=== PATIENT | male | born 1955 | race Caucasian/White ===

== ENCOUNTER 2017-01-13 16:26 | Inpatient (IN) | payer OTHER ==
[~2017-01-13] VITALS: Ht 165.1 cm; Wt 91.0 kg
[~2017-01-13 16:26] MED LIST: ASAEC PO; CLOP75TA14 PO; LISI20TA PO; METO50TA PO; ZOC20 PO
[2017-01-13 16:33] VITALS: BP 145/95; PULSE 65; RESP 20; O2SAT 96
[2017-01-13 17:36] LABS: BASOPHILS % (AUTO) 0.4 % (0-3); EOSINOPHILS % (AUTO) 1.2 % (0-5); MONOCYTES % (AUTO) 15.7 % (4-12); Mean Corpuscular Hemoglobin 31.4 pg (27.0-35.0); Mean Corpuscular Volume 90.6 fL (81-100); NEUTROPHILS % (AUTO) 49.2 % (40-74); Platelet Count 263 bil/L (150-400)
[2017-01-13 17:38] VITALS: BP 136/83; PULSE 60; RESP 17; O2SAT 97
--- NOTE | 2017-01-13 17:43 | DRSVH ---
PROCEDURE: X-RAY CHEST ONE VIEW, PORTABLE ([id number]) INDICATIONS: cp TECHNIQUE: One view of the chest was acquired. COMPARISON: [facility], , CHEST 1VW (PORTABLE), 01/09/2010, 2:48. FINDINGS: Surgical changes and devices: None. Lungs and pleura: No pleural effusions or pneumothorax. Lungs are clear. Mediastinum: Mediastinal contours appear normal. Heart size is normal. Bones and chest wall: No suspicious bony lesions. Overlying soft tissues appear unremarkable. Old healed left rib fractures. IMPRESSION: Negative chest. Dictated by: Gary Bright M.D. on 01/13/2017 at 17:33 Approved by: Gary Bright M.D. on 01/13/2017 at 17:34
[2017-01-13 17:56] LABS: TROPONIN T < 0.010 ug/L (0.0-0.011)
[2017-01-13 18:07] LABS: Magnesium 2.3 mg/dL (1.6-2.6)
--- NOTE | 2017-01-13 18:08 | ED.REPORT ---
HPI-Chest Pain 40 and Over Date of Service January 13, 2017 ED Provider: Dr. Badillo 61 y/o male with a hx of [place] (stent placement 7 years ago) and HTN presents to the ED complaining of intermittent chest pain, onset 4 days ago. The pt describes the pain as more of a heaviness with exertion. He states he noticed the pressure two weeks ago but thought it was anxiety. Associated sx include some SOB and dizziness. The pt denies hx of DVT, lower extremity edema, nausea and vomiting. Nursing Notes Stated Complaint: CHEST PAIN Chief Complaint: Chest Pain Nursing Notes Reviewed: Yes Allergies: Coded Allergies: No Known Allergies (Unverified , 01/13/17) Scheduled ([brandyn tincture]) 2-3 GTTS PO BID to TID General Time Seen by MD: 18:08 Chief Complaint Chest pain Hx Obtained From: Patient Arrived By: Walk-in Sudden in Onset?: No Onset Occurred: 4 days ago Context of Onset: Heavy exertion Symptom Duration: Intermittent Location: : Substernal Quality: Heaviness Severity: Current: No pain currently Severity: Maximum: No pain Recent Healthcare: No recent doctor visit Similar Sx Previous: No Past Medical History Past Medical History Myocardial infarction Reports: Hypertension Past Surgical History Stent placement Smoking History Unknown if Ever Smoker Ambulatory Status Independent Review of Systems Respiratory: Reports: Shortness of breath Cardiovascular: Reports: Chest pain (with exertion), Denies: Edema Neurologic: Reports: Dizziness Complete sys rev & neg: except as marked. Physical Exam Initial Vital Signs Vital Signs (First) Date Time Temp Pulse Resp B/P Pulse Ox O2 Delivery O2 Flow Rate FiO2 01/13/17 16:33 36.3 65 20 145/95 96 Room Air Initial VS: Reviewed Head / Eyes: Atraumatic, Normocephalic Neck: Supple, Non-tender, Full range of motion Extremities: Vascular intact, Neuro intact, No swelling, No tenderness Skin: Warm, Dry, No cyanosis Neurologic: Alert, Oriented, Nonfocal General/Constitutional: Awake, Alert, No acute distress, Cooperative Respiratory / Chest: Atraumatic, Breath sounds NL, Breath sounds = bilat, No respiratory distress, No rales, No rhonchi, No wheezing Cardiovascular: Heart rate NL, Regular rhythm, Heart sounds NL, No gallop, No murmurs, No rubs Abdomen: Atraumatic, Soft, Non-tender Interpretation & Diagnostics Lab Results Interpretation Result Diagram: 01/13/17 1720 01/13/17 1720 Test 01/13/17 17:20 White Blood Count 9.0th/mm3 (3.8-10.1) Red Blood Count 5.13mil/mm3 (4.40-5.80) Hemoglobin 16.1g/dL (13.8-17.2) Hematocrit 46.5% (41.0-50.0) Mean Corpuscular Volume 90.6fL (81-100) Mean Corpuscular Hemoglobin 31.4pg (27.0-35.0) Mean Corpuscular Hemoglobin Concent 34.6% (32.0-37.0) Red Cell Distribution Width 14.6% (12.3-15.4) Platelet Count 263bil/L (150-400) Neutrophils (%) (Auto) 49.2% (40-74) Lymphocytes (%) (Auto) 33.3% (14-46) Monocytes (%) (Auto) 15.7% (4-12) Eosinophils (%) (Auto) 1.2% (0-5) Basophils (%) (Auto) 0.4% (0-3) Sodium Level 135mEq/L (134-144) Potassium Level 4.1mEq/L (3.5-5.2) Chloride Level 98mEq/L (97-108) Carbon Dioxide Level 20mmol/L (18-29) Blood Urea Nitrogen 29mg/dL (8-27) Creatinine 1.29mg/dL (0.76-1.27) Estimat Glomerular Filtration Rate 60mL/min (>59) Glucose Level 100mg/dL (60-99) Calcium Level 9.7mg/dL (8.5-10.1) Magnesium Level 2.3mg/dL (1.6-2.6) Total Bilirubin 0.2mg/dL (0.0-1.2) Aspartate Amino Transf (AST/SGOT) 25U/L (0-50) Alanine Aminotransferase (ALT/SGPT) 27U/L (0-44) Alkaline Phosphatase 68U/L (25-160) Total Protein 7.4g/dL (6.4-8.4) Albumin 4.0g/dL (3.4-5.0) Triglycerides Level 185mg/dL (0-149) Cholesterol Level 289mg/dL (100-199) LDL Cholesterol, Calculated 209.000mg/dL (0-99) VLDL Cholesterol 37.000mg/dL HDL Cholesterol 43mg/dL (>39) Cholesterol/HDL Ratio 6.72 (0.0-4.4) Hold Matthews Top Tube Received (Received) Lab values outside NL range: no clinical significance. Lab Results Interpretation: Pulse Oximetry Interpretation Pulse Oximetry: Pulse Ox normal ECG Interpretation ECG Interpretation: Normal Sinus rhtyhm. Rate 58. Probable left atrial enlargement Old inferior infarct. No ST elevation. Time: 16:46 Interpreted by: ED physician Rhythm Strip Interpretation : Rhythm Strip Interpretation: Interpreted by me, Normal sinus rhythm Cardiac / Vascular Lab Interp Cardiac markers normal X-Ray Chest Interpretation Chest Xray Interpretation: IMPRESSION: Negative chest. Dictated by: Gary Bright M.D. on 01/13/2017 at 17:33 Approved by: Gary Bright M.D. on 01/13/2017 at 17:34 View: Portable, 1 view Interpretation / Wet Read by: Interpret - Radiologist Re-Eval/Medical Decision Med Decision/Clinical Course 61-year-old male with a history of coronary disease and stents presents with new onset exertional chest pain. Symptoms for at least a week. Progressively worsening to the point whereas almost no exercise intolerance. This is unstable angina. We will admit. No signs of STEMI on his EKG. First troponin is normal. Chest x-ray is normal. No history of pulmonary embolism. No pleuritic pain. No shortness of breath. Pulmonary emboli felt to be very unlikely. Aortic dissection felt to be very unlikely based on history, physical and diagnostics. Will admit for rule out protocol and stress testing. Time of Eval: 18:10 Re-Evaluation/Progress Note: Rechecked pt. Discussed lab results and plan to admit. Pt understands and agrees with the plan for admission. All questions addressed. Consultation : Referral / Consult Name: Tim Barajas MD Consulted With: Hospitalist Call Returned at: 19:12 Briquette Maker: Will see patient, Agrees with eval, Agrees with plan, Accepts admit Counseled Regarding: Diagnosis, Lab results, Need for admission Discharge & Departure Primary Impression: Unstable angina Disposition: ADMITTED TO HOSPITAL Discharge Condition All VS Reviewed: Yes Referrals: Marty Mohan MD (PCP) Scribe Attestation Portions of this note were transcribed by Patience Gee. I, , personally performed the history, physical exam and medical decision-making;I reviewed and confirmed the accuracy of the information in the transcribed note. Signed by Aida Pike. 01/13/17 1916 copies to: Marty Mohan MD, Todd P DO January 13, 2017 18:08 Patience Gee January 13, 2017 18:20
[2017-01-13] MEDS ORDERED: 0.9% Sodium Chloride 1,000 ML IV SCH (19:28)
[2017-01-13] MEDS ORDERED: Ondansetron 2 mg/mL 2 mL Inj IVPUSH PRN (19:30)
[2017-01-13] MEDS ORDERED: Senna-Docusate 8.6-50 mg Tablet PO PRN (19:30)
[2017-01-13] MEDS ORDERED: Alum-Mag Hydrox-Simeth 30 mL Suspension PO PRN (19:30)
[2017-01-13] MEDS ORDERED: Polyethylene Glycol (PEG) 17 Gm Powder PO PRN (19:30)
[2017-01-13] MEDS ORDERED: ASPI-973 PO (19:36)
[2017-01-13] MEDS ORDERED: LISI1TAB7 PO (19:36)
[2017-01-13] MEDS ORDERED: [UNRECOGNIZED DRUG - OTHER] PO (19:53)
[2017-01-13 20:10] VITALS: BP 127/71; PULSE 58; RESP 15; O2SAT 100
[2017-01-13 20:27] VITALS: BP 147/96; PULSE 56; RESP 19; O2SAT 97
[2017-01-13 20:32] VITALS: PULSE 79
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
[2017-01-13 21:11] LABS: Creatine Kinase 148 U/L (21-232)
[2017-01-14] MEDS: Sodium Chloride LOK Flush 10 mL Syringe IVFLUSH SCH ×4 (01:15→16:30)
[2017-01-14] MEDS: Heparin 5,000 Unit/mL Inj SUBQ SCH ×2 (01:15→09:04)
[2017-01-14 02:08] VITALS: BP 148/94; PULSE 54; RESP 18; O2SAT 96
--- NOTE | 2017-01-14 02:18 | NUR ---
ADMIT Pt admitted to 3020 from ED at 2030 hours on 01/13/17. Pt is alert and oriented x3, very pleasant and cooperative; he is smiling and appears to be in good spirits overall. Pt ambulates well without any assistive device or help from staff; no evident weakness or SOB. Pt oriented to room, call light, staff members, and hospital policies. Pt placed on telemetry monitoring by VIDEO CLERK. Pt denies any pain currently.
[2017-01-14 02:28] LABS: Creatine Kinase 120 U/L (21-232)
[2017-01-14 06:19] VITALS: BP 135/89; PULSE 54; RESP 17; O2SAT 97
[2017-01-14 06:32] LABS: BASOPHILS % (AUTO) 0.8 % (0-3); EOSINOPHILS % (AUTO) 1.5 % (0-5); MONOCYTES % (AUTO) 17.3 % (4-12); Mean Corpuscular Hemoglobin 31.7 pg (27.0-35.0); Mean Corpuscular Volume 91.6 fL (81-100); NEUTROPHILS % (AUTO) 52.6 % (40-74); Platelet Count 266 bil/L (150-400)
--- NOTE | 2017-01-14 06:32 | NUR ---
Uneventful Shift Pt slept through most of the night. Remained polite and cooperative through the shift, and appears to continue to be in good spirits this morning. No complaints of pain or SOB.
[2017-01-14 09:44] VITALS: BP 155/95; PULSE 52; RESP 18; O2SAT 98
[2017-01-14 10:49] VITALS: PULSE 56
--- NOTE | 2017-01-14 11:50 | NUR ---
Social Work: Screening Data: Pt is a 61 y/o male admitted for unstable angina. Pt's PCP is Dr Mohan, pt's insurance is [facility]. EMR reviewed. Pt discussed in rounds. MD states pt may be ready for d/c today. No d/c planning needs anticipated at this time. SENIOR BRANCH MANAGER will continue to follow if needs arise. Assessment: Pt who is independent at baseline. Plan: Pt will d/c home via POV when medically stable, possibly today per MD. No d/c planning needs anticipated at this time. SENIOR BRANCH MANAGER will continue to follow if needs arise. SHANIQUE Echevarria
--- NOTE | 2017-01-14 15:05 | DRSVH ---
PROCEDURE: 1 DAY TREADMILL STRESS TEST Rest and exercise myocardial perfusion SPECT with gated imaging and ejection fraction RADIOPHARMACEUTICAL: 10.5 mCi Tc-99m tetrafosmin IV at rest and 34.6 mCi Tc-99m tetrafosmin IV at pea k exercise. [id number] was performed. INDICATIONS: 61-year-old man with chest pain. Patient has coronary artery disease with history of co ronary stenting. Evaluate myocardial ischemia. TECHNIQUE: Radiopharmaceutical was injected at peak stress test, and also at rest. SPECT images wer e obtained. SPECT myocardial perfusion images were displayed in short axis, horizontal long axis, an d vertical long axis views. Gated images were reviewed using [email or web address] software. COMPARISON: None. CARDIAC STRESS: A standard Guillermo treadmill exercise tolerance test was performed by the patient under the supervision of an attending staff. The patient exercised for 4 minutes and 35 seconds; functional aerobic impai rment (TAMARA) is +50 %. Hemodynamic data: There is normal blood pressure and heart rate response to exercise stress. Patien t achieved 63% of maximum predicted heart rate at peak exercise. Symptoms: Patient had chest pain, 5/10, during exercise, resolved 2 minutes into recovery. EKG: Early transient ST elevation. FINDINGS: Raw data: There is good myocardial labeling by radiotracer. No significant motion artifacts. Left ventricle function: Gated images demonstrate normal left ventricle wall thickening. No segment al wall motion abnormality. No transient ischemic dilation. The left ventricle resting end-diastoli c volume is normal. Left ventricle stress ejection fraction is 63%; normal values are above 45%. Myocardial perfusion: There is a large, mild, reversible defect in the inferior wall of the left lisa tricle, which is largely resolved on prone imaging. IMPRESSION: 1. Probably normal myocardial perfusion images. There is a large, mild, reversible perfusion defect i n the inferior wall of the left ventricle, which is resolved on prone imaging, suggesting diaphragmat ic attenuation artifact. A small, very mild ischemia may be present. 2. Normal left ventricular volume and systolic function. 3. Severely limited exercise capacity. Submaximal exercise with the patient achieving 63% maximum pre dicted heart rate (target heart rate 85% or greater). The patient experienced chest pain during exer cise. EKG showed early transient ST elevation. PQRS ATTESTATIONS: Measure 322 - Is this imaging test primarily performed on a low-risk surgery patient for preoperative evaluation within 30 days preceding their low-risk non-cardiac surgery? Low-risk surgery is defined as cardiac or myocardial infarction less than 1%, including (but not limited to) endoscopic pr ocedures, superficial procedures, cataract surgery, and excisional breast surgery: Answer: No Measure 323 - Is this imaging test performed primarily for the monitoring of an asymptomatic patient who had percutaneous coronary intervention on the visit date or within 2 years of the visit date? An swer: No Measure 324 - Is this imaging test performed primarily for the initial detection and risk assessment on an asymptomatic, low coronary heart disease patient? Low CHD risk definition = clinicians should consider the maximum number of available patient factors used to estimate risk based on [place] (A TP III criteria), typically age, gender, diabetes, smoking status, and use of blood pressure medicati on, and integrate age appropriate estimates for missing elements, such as LDL or standard blood press ure. Answer: No Dictated by: Bhavin Bran M.D. on 01/14/2017 at 14:49 Approved by: Bhavin Bran M.D. on 01/14/2017 at 15:03
[2017-01-14 15:08] VITALS: BP 147/79; PULSE 53; RESP 18; O2SAT 96
[2017-01-14] MEDS ORDERED: Alum-Mag Hydrox-Simeth 30 mL Suspension PO PRN (16:05)
[2017-01-14] MEDS ORDERED: 0.9% Sodium Chloride 1,000 ML IV ONE (16:40)
[2017-01-14] MEDS ORDERED: Heparin 25K Unit/500mL 0.45 NS 25,000 UNIT in IV Premix 1 EACH IV SCH (16:40)
[2017-01-14] MEDS ORDERED: Heparin 5,000 Unit/mL Inj IVPUSH PRN (16:40)
--- NOTE | 2017-01-14 16:52 | DRSVH ---
[facility] [address] [place] [address] Echocardiogram Report Name: LAUAR CASTILLO WStudy Date: 01/14/2017 Hospital Exam Location: [facility] Gender: Male : 1955 Age: 61 yrs BP: 158/95 mmHg Reason For Study: Chest Pain Performed By: Abbie Michael Referring Physician: LORENE MARY Interpretation Summary The left ventricle is normal in size. The ejection fraction is estimated to be 60-65%. There has been no significant change in LV EF since the previous study.There is rosi basal inferior wall hypokinesis which appears to be new. The right ventricle is normal in size and function. There is discrete calcified nodular thickening of the non- coronary and the left coronary cusps (Old but more prominent on left coronary cusp as well in this study). There is no hemodynamically significant valvular aortic stenosis. There is aortic root sclerosis/calcification. Procedure: A two-dimensional transthoracic echocardiogram with color flow and Doppler was performed. The study quality was technically adequate. Comparison is made with the echocardiogram of 01/10/2010. Patient was in sinus rhythm with a heart rate varying from 50-55 bpm. Left Ventricle: The left ventricle is normal in size. Proximal septal thickening is noted. There is no echo evidence for significant left ventricular outflow tract obstruction. There is no thrombus. The ejection fraction is estimated to be 60-65%. There has been no significant change since the previous study. There is rosi basal inferior wall hypokinesis which appears to be new. Spectral Doppler of the mitral valve is reversed, with an E/A wave ratio < 1.0. Right Ventricle: The right ventricle is normal in size and function. Atria: The left atrium is mildly dilated. The left atrium has remained unchanged in size since the prior echo exam. Right atrial size is normal. The interatrial septum is intact with no evidence for an atrial septal defect. Mitral Valve: There is mild mitral annular calcification. The mitral valve leaflets are slightly calcified. There is trace mitral regurgitation. Aortic Valve: The aortic valve is trileaflet. There is moderate aortic valve sclerosis. There is discrete nodular thickening of the non- coronary cusp. Leaflet mobility is minimally reduced. There is no hemodynamically significant valvular aortic stenosis. There is no aortic regurgitation. Tricuspid Valve: The tricuspid valve is normal in structure and function. There is trace tricuspid regurgitation. The right ventricular systolic pressure is estimated at 28 mmHg assuming a right atrial pressure of 3 mm Hg. Compared to the prior echo exam, there has been a decrease in TR severity. Pulmonic Valve: The pulmonic valve leaflets are thin and pliable; valve motion is normal. There is mild pulmonic regurgitation. Great Vessels: The aortic root is normal size. There is aortic root sclerosis/calcification. The ascending aorta is normal in size. The IVC is of normal diameter and collapses greater than 50% with a sniff. This suggests a low right atrial pressure of 3 mm Hg. Pericardium/ Pleura There is no pericardial effusion. There is no pleural effusion. MMode/2D Measurements & Calculations LVIDd: 4.7 cm LA A2 area: 15.6 cm RA long axis LVOT diam: 2.3 cm LVIDs: 3.4 cm asc Aorta Diam FS: 27.4 % LA A4 area: 15.9 cm RA area: 13.3 cm EPSS: 1.0 cm LA length (vol) RA vol: 35.9 ml IVSd: 1.2 cm LVPWd LA vol: 44.2 ml : 0.8cm TAPSE: 2.6 cm Doppler Measurements & Calculations Ao V2 max MV E max anjum MV E/A: 0.76 TR max anjum : 113.5 cm/sec : 79.7 cm/sec Med Peak E' Anjum : 252.0 cm/sec Ao max P.1 mmHgMV A max anjum TR max PG Ao mean PG : 105.4 cm/sec E/E' med: 13.5 : 25.4 mmHg Lat Peak E' Anjum PA V2 max LVOT Max Anjum : 74.2 cm/sec : 99.5 cm/sec E/E' lat: 10.3 PA mean PG CATHLEEN(I,D): 3.5 cm E/e' average: 11.9 : 1.2 mmHg sev ratio: 0.87 MV dec time Ao V2 mean LV V1 max PG PA V2 mean : 0.23 sec : 79.1 cm/sec : 51.7 cm/sec Ao V2 VTI: 23.9 cm LV V1 VTI: 20.8 cm PA pr(Accel) : 25.1 mmHg CATHLEEN(V,D): 3.5 cm2 [place] Physician:PACO
--- NOTE | 2017-01-14 17:39 | PCM.PNMED ---
Subjective Date of Service January 14, 2017 Subjective Denies any new issues/complaints. no CP right now Exam Vital Signs Vital Sign - Last Date Time Temp Pulse Resp B/P Pulse Ox O2 Delivery O2 Flow Rate FiO2 01/14/17 15:08 37.1 53 18 147/79 96 Room Air Intake and Output 01/13/17 01/13/17 01/14/17 Cumulative From/Thru 15:00 23:00 07:00 01/13/17 16:33 - 01/14/17 06:19 Intake Total 200 ml 200 ml Output Total 420 ml 420 ml Balance -220 ml -220 ml Intake Oral 200 ml 200 ml Output Urine Total 420 ml 420 ml General: Alert, Oriented X3, Cooperative, No Acute Distress Head: Normal Eyes: Scleral Anicteric Nose: Mucous Membr Moist/[place] Mouth: Mucous Membr Moist/[place] Neck: Supple Chest & Lungs: Chest Wall Normal, Clear to auscultation & percussion Cardiovascular: Regular Rate/Rhythm Pulses: NL carotid, radial, femoral, DP, PT Abdomen: Non-tender, Non-distended, Normoactive bowel tones Extremities: No cyanosis/clubbing/edma bilat Neurological: Grossly Neurologically Intact, Normal Speech IVs and Medications Medications Reviewed: Medications were reviewed in detail Lab and Diagnostics Result Diagram: 01/14/17 0601/14/17 0620 X-Rays, CTs and MRIs Chest Xray Interpretation: IMPRESSION: Negative chest. Dictated by: Gary Bright M.D. on 01/13/2017 at 17:33 Approved by: Gary Bright M.D. on 01/13/2017 at 17:34 View: Portable, 1 view Interpretation / Wet Read by: Interpret - Radiologist 12-lead ECG ECG 4:46pm NSR rate 58, with no acute ischemic changes Read by ED physician Assessment & Plan 61 y/o male with a hx of ID s/p stent in 2009 and HTN presents to the ED complaining of intermittent chest pain, onset 4 days ago. # Acute Unstable angina, present on admission. Active. - Stress test on 01/[address] elevation and CP during exercise - Cardiology consulted. Will followup with recommendations: - Aspirin 325 mg - Increase Lipitor to 80 daily - Start heparin drip - Tentative plan for cardiac cath in am or sooner if has any further chest pain # Known history of CAD with stent - plan as noted above # Hypertension, chronic. - Continue lisinopril and metoprolol - Further medication management per cardiology recommendations # Hyperlipidemia, chronic. - Patient stopped taking simvastatin due to myalgias many years ago - Lipitor as noted above Dispo: 2-3 days pending further cardiac workup noted above GI Prophylaxis: Proton Pump Inhibitor VTE Prophylaxis: Sub-Q Heparin (Unfractionated) Resuscitation Status: CPR: Attempt Resuscitation Phong Gay January 14, 2017 17:39
--- NOTE | 2017-01-14 18:05 | NUR ---
Stress test: Patient had cardiac stress test today. He cam back from the test and had an echo and a cardiology consult. Per MD orders patients PTT /heparin lab was drawn and patient was started on a Cardiac Heparin Drip as per protocol. The settings were checked by second nurse. Patient is scheduled for a cardiac catheterization tomorrow am at 0900. Patient will be NPO after midnight for the test. His current tele reading is 54 SB . PT has had no c/o chest pain today. Per Printing Agent patients Metoprolol and Lisinopril were held.
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
[2017-01-14 22:12] VITALS: BP 147/90; PULSE 47; RESP 17; O2SAT 98
[2017-01-15] VITALS (23 sets, daily range): BP systolic 120–159; BP diastolic 78–109; PULSE 43–72; RESP 12–18; O2SAT 95–99
[2017-01-15] MEDS: Sodium Chloride LOK Flush 10 mL Syringe IVFLUSH SCH ×6 (00:30→16:15)
[2017-01-15 05:13] LABS: BASOPHILS % (AUTO) 0.5 % (0-3); EOSINOPHILS % (AUTO) 2.4 % (0-5); MONOCYTES % (AUTO) 12.6 % (4-12); Mean Corpuscular Hemoglobin 31.6 pg (27.0-35.0); Mean Corpuscular Volume 88.7 fL (81-100); NEUTROPHILS % (AUTO) 48.2 % (40-74); Platelet Count 269 bil/L (150-400)
[2017-01-15 05:20] LABS: INR 1.06 ratio
--- NOTE | 2017-01-15 05:53 | NUR ---
Cardiac Pt is chest pain free throughout the NOC. VSS. Heparin infusing and managed per Heparin Cardiac protocol. Pt NPO status since mid-NOC anticipating heart cath. NO overt complication noted.
[2017-01-15] MEDS ORDERED: 0.9% Sodium Chloride 1,000 ML IV ONE (06:00)
[2017-01-15] MEDS ORDERED: Heparin 1,000 Unit/mL 10 mL Inj ONE ×3 (08:25→09:50)
[2017-01-15] MEDS ORDERED: Nitroglycerin 50,000 mcg/250 mL D5W Premix IV ONE (08:25)
[2017-01-15] MEDS ORDERED: Heparin 1,000 Units/500 mL NS Premix IV ONE (08:25)
[2017-01-15] MEDS ORDERED: Heparin 10,000 Unit/1,000 mL NS Premix IV ONE ×3 (08:26→11:11)
--- NOTE | 2017-01-15 08:50 | NUR ---
Pre-op for Funds Development Director Heparin gtt infusing with no change to rate this AM. Consent confirmed and in chart. IV x2 and SL per cal lab personnel. Chlorhexidine body wipes. Pedal pulses marked with doppler. Escorted off floor by assistant laboratory director personnel via bed with at bedside. Report called to LYNDON.
[2017-01-15] MEDS ORDERED: fentaNYL-PF 50 mCg/mL 2 mL Inj ONE ×2 (08:59→10:22)
[2017-01-15] MEDS ORDERED: Phenylephrine/NS-PF 100 mCg/mL 5 mL Syringe IVPUSH ONE (09:33)
[2017-01-15] MEDS ORDERED: Atropine 1 mg/10 mL (Code) Syringe ONE (09:33)
--- NOTE | 2017-01-15 11:50 | DI95 ---
[address] [address] INTERVENTIONAL CARDIAC CATHETERIZATION PATIENT: LAURA CASTILLO : 1955 MR#: [id number] ADMIT: 01/13/2017 JOB ID: [id number] DATE: 01/15/2017 PROCEDURE: Percutaneous intervention on the right coronary artery. INDICATION: Acute coronary syndrome. ST elevation on the treadmill. PROCEDURAL DETAILS: The reader is referred to the procedure log as are the coders. This was a very long and a very complex procedure. Dr. Orozco had performed the diagnostic angiogram and he tried doing an intervention and was unsuccessful. I was asked to do this intervention on the right coronary artery. The right coronary artery has an upward takeoff and it has two bends, one of them is 90 degrees and the other one is about 120 degrees in its proximal and mid segment. Distal RCA before the crux had a tight 90% lesion. INTERVENTIONAL REPORT: The sheath was up sized to 7-Mongolian and an AL1 guide was used to cannulate this vessel. We initially crossed the lesion and the tortuosity with a Choice PT wire. Following that, we used a FineCross catheter to exchange this wire out for a balanced heavy weight wire. A guide liner was then placed and balloon inflations were done distally with a 2.0 and then with a 3.0 balloon. Following that, a 3.0 x 15 mm Xience drug-coated stent was delivered at 18 atmospheres with excellent angiographic results. In summary, successful complex intervention of the right coronary artery. The patient is advised to stay on dual antiplatelet therapy for at least six months post procedure.
[2017-01-15] MEDS ORDERED: 0.9% Sodium Chloride 250 ML BOLUS IV PRN (12:30)
[2017-01-15] MEDS ORDERED: Ondansetron 2 mg/mL 2 mL Inj IVPUSH PRN (12:30)
[2017-01-15] MEDS ORDERED: 0.9% Sodium Chloride 1,000 ML IV SCH (13:00)
--- NOTE | 2017-01-15 13:42 | NUR ---
Transfer Transfer to room 2028 planned for after recovery in [facility]. Contacted receiving RN. Belongings packed and transferred via ASSIGNMENT CLERK. Medications from drawer transferred in tube.
--- NOTE | 2017-01-15 14:02 | NUR ---
Arrival to room 2028 Patient arrived to [facility]. Calm and cooperative. No reported pain. Right groin site nontender and soft, no s/s of bruising or active bleeding. Pulses intact. SB per telemetry. Pressure stable. Sp02 >92% on room air. NS infusing at 100cc/hr. Patient oriented to room and call light. Plan of care and activity restrictions reviewed at bedside. Will continue to monitor.
--- NOTE | 2017-01-15 14:38 | CS94 ---
[address] [address] DIAGNOSTIC CARDIAC CATHETERIZATION PATIENT: LAURA CASTILLO : 1955 MR#: [id number] ADMIT: 01/13/2017 JOB ID: [id number] PROCEDURE NOTE -- CARDIAC CATHETERIZATION LABORATORY: SERVICE DATE: December FARM MANAGEMENT SUPERVISOR: Delon Orozco MD PROCEDURES: 1. Coronary angiogram -- urgent. 2. Left heart catheterization (LHC) -- pressure measurement. CLINICAL DETAILS: This 61-year-old man presents to the Cardiac Catheterization Laboratory for cardiac catheterization after he was admitted to the hospital 36 hours ago because of the 3-week onset of exertional and occasional mild episodes of angina consisting of neck tightness. ECG is not outside normal limits; and serial troponins were not elevated. Echocardiogram shows intact left ventricular global systolic function with ejection fraction 60%; but probable inferior hypokinesis on a limited study. The clinical impression is unstable angina pectoris. On a treadmill myocardial perfusion scan, he developed chest discomfort and inferior ST elevation at 85 bpm. The perfusion images showed a large inferior defect that reperfused during redistribution phase; however, on prone positioning there was no stress defect; but he was felt to have a very high likelihood of RCA lesion. He has known coronary disease after presenting with ACS in 2009 leading to emergent PCI of culprit OM 2 (Xience 3.0 x 28 mm). At that time, he also had intermediate disease in the RCA and LAD; and a severe ostial diagonal lesion. CAD risk factors include hypertension; severe untreated hyperlipidemia (cholesterol 289; and LDL 229). He has not seen a doctor since 2010. PROCEDURAL DETAILS: I met him prior to the procedure to discuss the findings, impressions and management considerations including the recommendation to proceed to urgent coronary angiogram and with a high likelihood of finding progressive coronary disease requiring intervention or even consideration of bypass surgery. We discussed the procedure including risks and complications. After discussion and questions, he signed informed consent to proceed. He was brought to the Catheterization Laboratory n.p.o. where he was prepped sterilely and draped. He had been treated with ASA and heparin IV infusion, and statin; and no beta dedrick because of bradycardia. CORONARY ANGIOGRAM: Arterial access was obtained without difficulty in the right common femoral artery using fluoroscopic localization over the femoral head and modified Seldinger technique to insert a 10 cm 6-[place] side-arm sheath. Catheters were advanced and exchanged over a long 0.035 inch J tipped guidewire. First, the left coronary artery was engaged with a 6-[place] JL-4 catheter. Then, the right coronary artery was engaged with a 6-[place] JR-4 catheter. LHC: The catheter incidentally entered the left ventricle where LVED and pullback were recorded. Procedure without difficulty. Patient tolerated the procedure well. No complications. A side-arm sheath angiogram shows adequate access in the right femoral artery for a closure device. The diagnostic images were reviewed and decision made to undertake urgent PCI of the culprit subtotal distal RCA lesion. See PCI report dictated separately. At the end of the procedure, I discussed the findings, impressions and ongoing management considerations with the patient, with his ; with Cardiology; and with the hospitalist team. FINDINGS: 1. LMCA: Intact. The left main coronary artery has no angiographic obstruction. 2. LAD: Proximal LAD. There is a hazy tubular intermediate stenosis (40% to 50%) at the takeoff of the first diagonal. Diagonal one: Focal 90% ostial lesion noted with MERYL-3 flow. The diagonal was moderate size (2.0-2.25 mm). Mid LAD: Note: Tubular intermediate 50% to 60% lesion in the distal part of the mid LAD segment. The LAD terminates as a transapical vessel. 3. LCX: OM-2: The prior stent from 2009 is widely patent and fully intact in the large dominant OM branch. OM-1: The OM-1 is a small vessel with 80% ostial and proximal narrowing with MERYL-3 flow. 4. RCA: Dominant. 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 Distal RCA: The apparent clinical culprit lesion is a focal subtotal 95% lesion with MERYL-3 flow. This lesion was present in 2009 but now much more severe. PDA: Moderate-sized vessel with severe focal proximal 95% lesion with MERYL-3 flow. RPLB: Moderate-size vessel with moderate diffuse atherosclerosis. CONCLUSIONS: 1. Coronary artery disease (CAD)-- three-vessel disease including culprit focal subtotal distal RCA (right coronary artery) lesion prior to the crux; as well as severe focal ostial lesion of moderate-sized diagonal-1; and intermediate lesions of proximal and mid LAD (left anterior descending); and patent prior stent in OM-1 (obtuse marginal 1). 2. ACS (acute coronary syndrome) -- UAP (unstable angina pectoris). RECOMMENDATIONS: Diagnostic images were reviewed and the patient remained in the Catheterization Laboratory to proceed with urgent PCI of distal RCA culprit lesion.
--- NOTE | 2017-01-15 15:15 | NUR ---
Bleeding at groin site Transparent/gauze dressing to right groin saturated with blood. Dressing removed, slow ooze noted at site. No hematoma or bruising noted. Manual pressure held for 10 minutes, and fem-stop applied. Pulses remain intact. Vital signs stable. Denies pain. Will continue to monitor.
--- NOTE | 2017-01-15 16:07 | PCM.PNMED ---
Subjective Date of Service January 15, 2017 Subjective Denies any new issues/complaints. no CP right now Exam Vital Signs Vital Sign - Last Date Time Temp Pulse Resp B/P Pulse Ox O2 Delivery O2 Flow Rate FiO2 01/15/17 15:41 49 18 137/90 01/15/17 15:39 96 Room Air 01/15/17 14:03 36.6 Intake and Output 01/14/17 01/14/17 01/15/17 Cumulative From/Thru 15:00 23:00 07:00 01/13/17 16:33 - 01/15/17 06:00 Intake Total 803 ml 1000 ml 1926 ml 3929 ml Output Total 300 ml 1100 ml 1820 ml Balance 803 ml 700 ml 826 ml 2109 ml Intake Oral 400 ml 400 ml 1000 ml IV Total 803 ml 600 ml 1526 ml 2929 ml Output Urine Total 300 ml 1100 ml 1820 ml Exam General: Alert, Cooperative, No Acute Distress Head: Normal Eyes: Scleral Anicteric Nose: Mucous Membr Moist/[place] Mouth: Mucous Membr Moist/[place] Neck: Supple Chest & Lungs: Chest Wall Normal, Clear to auscultation bilat Cardiovascular: Regular Rate/Rhythm Pulses: NL carotid, radial, femoral, DP, PT Abdomen: Non-tender, Non-distended, Normoactive bowel tones Extremities: No cyanosis/clubbing/edema bilat Neurological: Grossly Neurologically Intact, Normal Speech IVs and Medications Medications Reviewed: Medications were reviewed in detail Lab and Diagnostics Result Diagram: 01/15/17 0435 01/15/17 0435 X-Rays, CTs and MRIs Chest Xray Interpretation: IMPRESSION: Negative chest. Dictated by: Gary Bright M.D. on 01/13/2017 at 17:33 Approved by: Gary Bright M.D. on 01/13/2017 at 17:34 View: Portable, 1 view Interpretation / Wet Read by: Interpret - Radiologist 12-lead ECG ECG 4:46pm NSR rate 58, with no acute ischemic changes Read by ED physician Assessment & Plan 61 y/o male with a hx of [place] s/p stent in 2009 and HTN presents to the ED complaining of intermittent chest pain, onset 4 days ago. # Acute Unstable angina, present on admission. - Stress test on 01/[address] elevation and CP during exercise - Appreciate Cardiology consult. Will followup with recommendations: - Post cardiac cath on 01/15 showing: "Coronary artery disease (CAD)-- three- vessel disease including culprit focal subtotal distal RCA (right coronary artery) lesion prior to the crux; as well as severe focal ostial lesion of moderate-sized diagonal-1; and intermediate lesions of proximal and mid LAD ( left anterior descending); and patent prior stent in OM-1 (obtuse marginal 1)." - Post "successful complex intervention of the right coronary artery." - Continue dual antiplatelet therapy for at least six months post procedure. # Known history of CAD with stent - plan as noted above # Hypertension, chronic. - Further medication management per cardiology recommendations # Hyperlipidemia, chronic. - Patient stopped taking simvastatin due to myalgias many years ago - Continue Lipitor for now Dispo: 1-2 days GI Prophylaxis: Proton Pump Inhibitor VTE Prophylaxis: Sub-Q Heparin (Unfractionated) Resuscitation Status: CPR: Attempt Resuscitation Phong Gay January 15, 2017 16:06
[2017-01-16] MEDS: Sodium Chloride LOK Flush 10 mL Syringe IVFLUSH SCH ×4 (00:30→08:25)
[2017-01-16 00:31] VITALS: BP 145/91; PULSE 52; RESP 18; O2SAT 98
[2017-01-16 03:46] VITALS: BP 143/92; PULSE 56; RESP 18; O2SAT 97
--- NOTE | 2017-01-16 04:20 | NUR ---
activity pressure dressing of kerlix placed on right groin perclose to prevent additional serous sanguinous drainage patient ambulated to restroom without difficulty. no change to perclose. u
[2017-01-16 04:47] LABS: Mean Corpuscular Hemoglobin 31.5 pg (27.0-35.0); Mean Corpuscular Volume 89.9 fL (81-100)
[2017-01-16 05:19] VITALS: PULSE 65
[2017-01-16 08:00] VITALS: PULSE 55
[2017-01-16 08:16] VITALS: BP 144/95; PULSE 53; RESP 16; O2SAT 96
--- NOTE | 2017-01-16 10:58 | NUR ---
Social Work: Discharge D: Pt discussed in am rounds. Pt is medically stable for discharge home. MD anticipates no social work or discharge needs. TRIMMING CUTTER MACHINE met with pt at bedside to confirm dcp. Pt lives at home with his . Pt has been ambulating I during admission and denies any home needs. Family will be transporting the patient. EMR reviewed and no sw needs identified. A: Pt who is I at baseline. P: Pt to discharge home with no sw needs; SHANIQUE Lucio
--- NOTE | 2017-01-16 11:33 | PROG NOTE ---
[address] [address] PROGRESS NOTE PATIENT: LAURA CASTILLO : 1955 MR#: [id number] ADMIT: 01/13/2017 JOB ID: [id number] DATE: 01/16/2017 CARDIOLOGY CONSULTATION PROGRESS NOTE -- FOLLOWUP INPATIENT PHYSICAL: DATE OF EVALUATION: Monday, January 16, 2017. CONSULTING PHYSICIAN: Cardiology -- Delon Orozco MD. PROBLEMS: 1. ACS (UAP with ST-elevation on treadmill exercise test). 2. Coronary artery disease (CAD): a. Urgent PCI of culprit subtotal focal distal RCA lesion (Xience 3.0 x 15 mm NAIMA). b. Three-vessel CAD -- including intermediate LAD lesions; severe ostial diagonal lesion (chronic and unchanged); current distal RCA culprit revascularized; and OM lesion previously revascularized (stent from 2009, currently intact). c. Risk factors: Hypertension and severe hyperlipidemia (LDL 220), not treated for several years recently. HOSPITAL COURSE AND INTERIM PROGRESS: HOSPITAL DAY FOUR. I saw this 61-year-old man along with his on the PCU unit today on Monday, January 16, 2017, on cardiology rounds. I had a lengthy discussion with them regarding his findings and progress and ongoing management considerations. I also discussed with the primary hospitalist service. In summary, he presented with chest discomfort, negative troponin and near normal ECG -- i.e., unstable angina. He had ST elevation and chest discomfort at 85 bpm on treadmill. Catheterization was accomplished yesterday which showed a new culprit subtotal distal RCA lesion that was treated with a Xience 3.0 mm NAIMA. 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 Post PCI, he has done well with no symptom, no arrhythmia and no difficulty with his right groin access site. He has been ambulating in the room but not yet out in the hallway. Bradycardia has been noted on telemetry precluding metoprolol. EXAMINATION: Vital signs stable. He had vigorous urine output after contrast. Heart and lungs: Intact. Extremities: Note intact RFA access site with only a modest ecchymosis. No hematoma. No pulsatile mass or systolic bruit, and good perfusion with good distal pulses in the right foot. ELECTROCARDIOGRAM: Not clearly outside normal limits. LABORATORY: Creatinine remains intact, and other labs unremarkable. ASSESSMENT: Had several extensive discussions with him and his including yesterday after the catheterization, today with him; and later again with his when she arrived. We discussed activity after his procedure including not to lift more than 10 pounds for a week. Then, also to resume normal activities as tolerated according to an activity prescription for moderate, progressive, stepwise, symptom-limited activity. He is vigorously active and planning to take his boat back to [facility], where he will live. I reminded him to not overdo it initially. MEDICATIONS: We discussed his medications again including the critical importance of mandatory dual antiplatelet therapy. We had started prasugrel acutely in the catheterization laboratory; but discussed plan to discharge him on Plavix 75 mg p.o. daily for a year as tolerated. They understand the critical importance of dual antiplatelet therapy; and not to stop for any reason without immediate cardiology consultation. FOLLOWUP: We discussed to reestablish care with a PCP to be seen in several days to a week. I recommended the importance of cardiology followup with Dr. Ceron who knows him well in the Cardiology Clinic. Finally, we discussed the importance and value of a cardiac rehab program if he can do it; although he may be at too far a distance on [facility]. RECOMMENDATIONS: 1. Continue re-ambulation including in the hallways out of the room. 2. Discharge today per primary hospitalist service. He is stable for discharge from a cardiology point of view. 3. Followup as per above.
[2017-01-16] MEDS ORDERED: ASPI81TA3 PO (11:43)
[2017-01-16] MEDS ORDERED: ATOR40TA69 PO (11:43)
[2017-01-16] MEDS ORDERED: CLOP75TA3 PO (11:43)
--- NOTE | 2017-01-16 11:47 | PCM.DIMED ---
Discharge Instructions Date of Service January 16, 2017 Dates of Hospitalization January 13, 2017 at 19:45 Discharge Diagnosis Discharge Diagnosis Acute coronary syndrome; status post percutaneous intervention Medication Instructions Additional med instructions New prescriptions have been transmitted to your pharmacy. Diet Discharge Diet: Heart Healthy Activity Discharge Activity: Limited until seen by PCP Call your provider Call your provider for: Chest pain Patient Instructions Patient Instructions Normal activity, but avoid high intensity exercise until seen by your physician. Follow-up Provider: Mario Ceron MD Follow-up with PCP in: 2 weeks (call S cardiology clinic soon for posthospitalization follow-up appointment with Dr. Ceron) Provider: Marty Mohan MD Follow-up in: 1 week (call for posthospitalization follow-up appointment with primary care provider) Ky Richardson MD January 16, 2017 11:47
[2017-01-16] MEDS ORDERED: LISI1TAB9 PO (11:50)
--- NOTE | 2017-01-16 11:55 | PCM.DC.MED ---
Discharge Summary Date of Service January 16, 2017 Dates of Hospitalization Date of Hospital Admission January 13, 2017 at 19:45 Date of Discharge: January 16, 2017 Providers: Admitting Physician: Tim Barajas MD Primary Care Physician: Marty Mohan MD Attending Physician: Tim Barajas MD Diagnosis at Time of Discharge Diagnosis at Time of Discharge Acute coronary syndrome; status post percutaneous intervention Procedures XRay, CTs & MRIs Chest Xray Interpretation: IMPRESSION: Negative chest. Dictated by: Gary Bright M.D. on 01/13/2017 at 17:33 Approved by: Gary Bright M.D. on 01/13/2017 at 17:34 View: Portable, 1 view Interpretation / Wet Read by: Interpret - Radiologist ECG 12 Lead ECG 4:46pm NSR rate 58, with no acute ischemic changes Read by ED physician Cardiac Echo Impression Echocardiogram Report Name: LAURA CASTILLO Study Date: 01/14/2017 Interpretation Summary The left ventricle is normal in size. The ejection fraction is estimated to be 60-65%. There has been no significant change in LV EF since the previous study.There is rosi basal inferior wall hypokinesis which appears to be new. The right ventricle is normal in size and function. There is discrete calcified nodular thickening of the non- coronary and the left coronary cusps (Old but more prominent on left coronary cusp as well in this study). There is no hemodynamically significant valvular aortic stenosis. There is aortic root sclerosis/calcification. . Invasive Procedures INTERVENTIONAL CARDIAC CATHETERIZATION DATE: 01/15/2017 PROCEDURE: Percutaneous intervention on the right coronary artery. INDICATION: Acute coronary syndrome. ST elevation on the treadmill. PROCEDURAL DETAILS: The reader is referred to the procedure log as are the coders. This was a very long and a very complex procedure. Dr. Orozco had performed the diagnostic angiogram and he tried doing an intervention and was unsuccessful. I was asked to do this intervention on the right coronary artery. The right coronary artery has an upward takeoff and it has two bends, one of them is 90 degrees and the other one is about 120 degrees in its proximal and mid segment. Distal RCA before the crux had a tight 90% lesion. INTERVENTIONAL REPORT: The sheath was up sized to 7-[place] and an AL1 guide was used to cannulate this vessel. We initially crossed the lesion and the tortuosity with a Choice PT wire. Following that, we used a FineCross catheter to exchange this wire out for a balanced heavy weight wire. A guide liner was then placed and balloon inflations were done distally with a 2.0 and then with a 3.0 balloon. Following that, a 3.0 x 15 mm Xience drug-coated stent was delivered at 18 atmospheres with excellent angiographic results. In summary, successful complex intervention of the right coronary artery. The patient is advised to stay on dual antiplatelet therapy for at least six months post procedure. Mario Ceron MD 01/15/17 1123 . Other Diagnostics DIAGNOSTIC CARDIAC CATHETERIZATION PATIENT: LAURA CASTILLO : 1955 PROCEDURE NOTE -- CARDIAC CATHETERIZATION LABORATORY: SERVICE DATE: December FINDINGS: 1. LMCA: Intact. The left main coronary artery has no angiographic obstruction. 2. LAD: Proximal LAD. There is a hazy tubular intermediate stenosis (40% to 50%) at the takeoff of the first diagonal. Diagonal one: Focal 90% ostial lesion noted with MERYL-3 flow. The diagonal was moderate size (2.0-2.25 mm). Mid LAD: Note: Tubular intermediate 50% to 60% lesion in the distal part of the mid LAD segment. The LAD terminates as a transapical vessel. 3. LCX: OM-2: The prior stent from 2009 is widely patent and fully intact in the large dominant OM branch. OM-1: The OM-1 is a small vessel with 80% ostial and proximal narrowing with MERYL-3 flow. 4. RCA: Dominant. 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 Distal RCA: The apparent clinical culprit lesion is a focal subtotal 95% lesion with MERYL-3 flow. This lesion was present in 2009 but now much more severe. PDA: Moderate-sized vessel with severe focal proximal 95% lesion with MERYL-3 flow. RPLB: Moderate-size vessel with moderate diffuse atherosclerosis. CONCLUSIONS: 1. Coronary artery disease (CAD)-- three-vessel disease including culprit focal subtotal distal RCA (right coronary artery) lesion prior to the crux; as well as severe focal ostial lesion of moderate-sized diagonal-1; and intermediate lesions of proximal and mid LAD (left anterior descending); and patent prior stent in OM-1 (obtuse marginal 1). 2. ACS (acute coronary syndrome) -- UAP (unstable angina pectoris). RECOMMENDATIONS: Diagnostic images were reviewed and the patient remained in the Catheterization Laboratory to proceed with urgent PCI of distal RCA culprit lesion. Delon Orozco MD 01/15/17 8853 . Brief History History of Present Illness (per admission note): Patient is a 61 y/o male with a hx of [place] (s/p stent in 2009), hyperlipidemia and HTN presents to the ED complaining of intermittent chest pain, onset 4 days ago. The pt describes the pain as more of a heaviness with exertion. Patient reports the pain is in the clavicle area bilaterally, which he describes as "tightness" and radiates up to both sides of his jaws, occasionally feels some moderate pressure on his left axillary area. Associated symptoms of lightheadedness. Patient states it usually lasts for about 5 minutes. He states he noticed the pressure two weeks ago but thought it was anxiety, since patient has been under much stress due to family issues. The pt denies hx of DVT , lower extremity edema, nausea and vomiting. He denies any pain currently. In delineating her final decision T 35, P 65 R 20 BP 145/95, 96% on RA. CBC unremarkable, only significant for review and 29, creatinine 1.29. Troponin x1 negative. ECG negative for any acute ischemic changes. Patient admitted for chest pain rule out. Addendum: Per [facility] records, patient last seen for follow-up by Dr. Ceron on 04/01/2011, at which time patient was on aspirin 325 mg, lisinopril 20 mg, metoprolol 75 mg twice daily, simvastatin 40 mg. Patient states he stopped taking the statin due to myalgias many years ago, and only currently takes baby aspirin and lisinopril/hydrochlorothiazide from an old prescription, which he started taking on his own after finding out he had elevated blood pressures of 160/100s after gaining weight. Stopped going to Dr. Mohan in 2010 due to clinics no longer taking his insurance. Hospital Course 61 y/o male with a hx of [place] s/p stent in 2009 and HTN presents to the ED complaining of intermittent chest pain, onset 4 days ago. # Acute Unstable angina, present on admission. - Stress test on 01/[address] elevation and CP during exercise - Appreciate Cardiology consult. Will followup with recommendations: - Post cardiac cath on 01/15 showing: "Coronary artery disease (CAD)-- three- vessel disease including culprit focal subtotal distal RCA (right coronary artery) lesion prior to the crux; as well as severe focal ostial lesion of moderate-sized diagonal-1; and intermediate lesions of proximal and mid LAD ( left anterior descending); and patent prior stent in OM-1 (obtuse marginal 1)." - Post "successful complex intervention of the right coronary artery." - Continue dual antiplatelet therapy for at least six months post procedure. # Hypertension, chronic. - Renew his previous prescription for lisinopril with hydrochlorothiazide # Hyperlipidemia, chronic. - Highintensity statin - Lipitor well tolerated so far . Exam Vital Signs (Last) Date Time Temp Pulse Resp B/P Pulse Ox O2 Delivery O2 Flow Rate FiO2 01/16/17 08:16 36.6 53 16 144/95 96 Room Air Exam General: Healthy-appearing, no acute distress HEENT: sclerae anicteric, oral mucosa moist Neck: no JVD Chest: clear to auscultation Cardiac: S1S2, no murmur Abdomen: BS normal, non-tender; catheterization site without hematoma or swelling Extremities: No edema Neuro: A&O, cranial nerves symmetric, motor strength 5/5, coordination normal Test 01/13/17 17:20 01/13/17 20:08 01/14/17 01:28 01/14/17 23:11 Magnesium Level 2.3mg/dL (1.6-2.6) Total Bilirubin 0.2mg/dL (0.0-1.2) Aspartate Amino Transf (AST/SGOT) 25U/L (0-50) Alanine Aminotransferase (ALT/SGPT) 27U/L (0-44) Alkaline Phosphatase 68U/L (25-160) Total Protein 7.4g/dL (6.4-8.4) Albumin 4.0g/dL (3.4-5.0) Triglycerides Level 185mg/dL (0-149) Cholesterol Level 289mg/dL (100-199) LDL Cholesterol, Calculated 209.000mg/dL (0-99) VLDL Cholesterol 37.000mg/dL HDL Cholesterol 43mg/dL (>39) Cholesterol/HDL Ratio 6.72 (0.0-4.4) Hold Matthews Top Tube Received (Received) Thyroid Stimulating Hormone (TSH) 1.950uIU/mL (0.450-4.500) Total Creatine Kinase 120U/L (21-232) Creatine Kinase MB 3.0ng/mL (0.0-10.4) Creatine Kinase MB % % (0.0-5.0) Troponin T 0.010ug/L (0.0-0.011) Hold Blue Top Tube Received (Received) Test 01/15/17 04:35 01/15/17 18:45 01/16/17 04:35 Neutrophils (%) (Auto) 48.2% (40-74) Lymphocytes (%) (Auto) 36.2% (14-46) Monocytes (%) (Auto) 12.6% (4-12) Eosinophils (%) (Auto) 2.4% (0-5) Basophils (%) (Auto) 0.5% (0-3) Prothrombin Time 11.4sec (8.1-12.5) Prothromb Time International Ratio 1.06ratio Activated Partial Thromboplast Time 29.4sec (22.8-33.0) White Blood Count 11.5th/mm3 (3.8-10.1) Red Blood Count 4.44mil/mm3 (4.40-5.80) Hemoglobin 14.0g/dL (13.8-17.2) Hematocrit 39.9% (41.0-50.0) Mean Corpuscular Volume 89.9fL (81-100) Mean Corpuscular Hemoglobin 31.5pg (27.0-35.0) Mean Corpuscular Hemoglobin Concent 35.1% (32.0-37.0) Red Cell Distribution Width 14.3% (12.3-15.4) Platelet Count 247bil/L (150-400) Sodium Level 136mEq/L (134-144) Potassium Level 4.3mEq/L (3.5-5.2) Chloride Level 100mEq/L (97-108) Carbon Dioxide Level 25mmol/L (18-29) Blood Urea Nitrogen 13mg/dL (8-27) Creatinine 1.01mg/dL (0.76-1.27) Estimat Glomerular Filtration Rate 80mL/min (>59) Glucose Level 101mg/dL (60-99) Calcium Level 9.1mg/dL (8.5-10.1) Discharge Medications Discharge Medications ([brandyn tincture]) 2-3 GTTS PO BID to TID (Reported) Aspirin Chew (Aspirin Chew) 81 Mg Chew 81 MG PO DAILY Prescribed by: CARLOTA RESENDEZ MD Atorvastatin Calcium (Atorvastatin Calcium) 40 Mg Tablet 80 MG PO HS Prescribed by: CARLOTA RESENDEZ MD Clopidogrel Bisulfate (Plavix) 75 Mg Tablet 75 MG PO DAILY Prescribed by: CARLOTA RESENDEZ MD Lisinopril / HCTZ 20-12.5 mg (Lisinopril / HCTZ 20-12.5 mg) 1 Each Tablet 1 EACH PO DAILY Prescribed by: CARLOTA RESENDEZ MD Additional med instructions New prescriptions have been transmitted to your pharmacy. Followup Plan Disposition: Home Discharge Diet: Heart Healthy Discharge Activity: Limited until seen by PCP Patient Instructions Normal activity, but avoid high intensity exercise until seen by your physician. Follow-up Provider: Mario Ceron MD Follow-up with PCP in: 2 weeks (call S cardiology clinic soon for posthospitalization follow-up appointment with Dr. Ceron) Provider: Maryt Mohan MD Follow-up in: 1 week (call for posthospitalization follow-up appointment with primary care provider) Time spent 25 min copies to: Mario Ceron MD, Jeffrey W MD January 16, 2017 11:48
--- NOTE | 2017-01-16 12:45 | NUR ---
Discharge Pt. discharged to home with and took all his belongings from room [address] [facility]. Pt. was given educational material on new prescriptions Aspirin, Atorvastatin Calcium, Clopidogrel Bisulfate, and Lisinopril / HCTZ. Pt. was also given educational material on Angina as well as booklet information for the cardiac stent he received yesterday to his RAC. Pt. was also instructed that he had a follow up appointment with Dr. Mohan on January 29. at 1130A as well as another appointment with Dr. Ceron on March 06 at 145P. Pt. stated he understood and would go to the appointment. Pt. IV DC'D x2 intact and asymptomatic.
== END 2017-01-16 12:45 | disposition home or self-care (01) | DRG 247 ==
LOC: SED 16:26 → MPC 19:45 → OBSVTOIN 19:45 → PCC 01-15 13:13
PROVIDERS: ADMIT Hospitalist; ATTEND Hospitalist
PROC: 027034Z Dilation of Coronary Artery, One Artery with Drug-eluting Intraluminal Device, Percutaneous Approach (ICD-10-PCS; principal; 2017-01-15)
PROC: 4A023N7 Measurement of Cardiac Sampling and Pressure, Left Heart, Percutaneous Approach (ICD-10-PCS; 2017-01-15)
PROC: B2111ZZ Fluoroscopy of Multiple Coronary Arteries using Low Osmolar Contrast (ICD-10-PCS; 2017-01-15)
DX: I25.110 Atherosclerotic heart disease of native coronary artery with unstable angina pectoris (principal); N17.9 Acute kidney failure, unspecified; I24.9 Acute ischemic heart disease, unspecified; I10 Essential (primary) hypertension; Z95.5 Presence of coronary angioplasty implant and graft; E78.5 Hyperlipidemia, unspecified; I25.2 Old myocardial infarction; R94.39 Abnormal result of other cardiovascular function study